=== PATIENT | female | born 1960 | race Caucasian/White ===

== ENCOUNTER 2017-02-15 15:45 | Emergency (ER) | payer MEDICARE ==
[~2017-02-15] VITALS: Ht 165.1 cm; Wt 58.5 kg
[~2017-02-15 15:45] MED LIST: ACET500 PO; ALBU.083IS IH; CITA20; CITA20 PO; CLON.5; CLON.5 PO; Cipro500 MG PO; Cleocin HCl300 MG PO; DARIFENACIN ER15 MG PO; DESV50 PO; DIVA125EC; DIVA125EC PO; DULO30 PO; ELET40TA; ELET40TA PO; ENABLEX; HYDCHL25; IBUP400 PO; IBUP800; IBUP800 PO; INTE30I; INTE30I SC; INTE30I SUBQ; MECL25 PO; METPRE4 PO; METPRE4DP PO; MONT10T PO; NUVIGIL; Naprosyn500 MG PO; OXYACE5T PO; PREG75 PO; PROM25 PO; TIZA4; VIIBRYD10 MG PO
[2017-02-15 16:51] LABS: BASOPHILS ABSOLUTE AUTO 0.06 K/mm3 (0.00-0.23); BASOPHILS PERCENT AUTO 1 % (0-2); EOSINOPHILS ABSOLUTE AUTO 0.11 K/mm3 (0.00-0.68); EOSINOPHILS PERCENT AUTO 2 % (0-6); Hematocrit 41.2 % (33.0-51.0); Hemoglobin 13.7 g/dL (11.5-16.0); IMMATURE GRAN ABSOLUTE AUTO 0.01 K/mm3 (0.00-0.10); IMMATURE GRAN PERCENT AUTO 0 % (0-1); LYMPHOCYTES ABSOLUTE AUTO 2.34 K/mm3 (0.84-5.20); LYMPHOCYTES PERCENT AUTO 39 % (21-46); MONOCYTES ABSOLUTE AUTO 0.41 K/mm3 (0.16-1.47); MONOCYTES PERCENT AUTO 7 % (4-13); Mean Corpuscular HGB 31.7 pg (26.0-34.0); Mean Corpuscular HGB Conc 33.3 g/dL (31.5-36.5); Mean Corpuscular Volume 95 fL (80-100); Mean Platelet Volume 10.5 fL (9.1-12.4); NEUTROPHILS ABSOLUTE AUTO 3.11 K/mm3 (1.96-9.15); NEUTROPHILS PERCENT AUTO 52 % (41-73); Platelet Count 234 K/mm3 (150-400); RDW Coefficient Variation 13.5 % (11.7-14.2); RDW Standard Deviation 46.8 fL (35.1-46.3); Red Blood Cell Count 4.32 M/mm3 (3.80-5.20); White Blood Cell Count 6.04 K/mm3 (4.00-11.30)
[2017-02-15 17:07] LABS: Alanine Aminotransfer (ALT/SGP 26 U/L (12-78); Albumin, Blood 4.2 g/dL (3.4-5.0); Albumin/Globulin Ratio 1.2 (0.8-1.8); Alk Phos 97 U/L (50-136); Anion Gap 4 mmol/L (6-16); Aspartate Aminotrans (AST/SGOT 21 U/L (12-37); Bilirubin, Total 0.3 mg/dL (0.1-1.0); Blood Urea Nitrogen 25 mg/dL (8-24); Bun/Creatinine Ratio 30.1 (12.0-20.0); CO2, Blood 30 mmol/L (21-32); Calcium, Blood 9.4 mg/dL (8.5-10.1); Chloride, Blood 108 mmol/L (98-108); Creatinine, Blood 0.83 mg/dL (0.40-1.00); Globulin, Blood 3.5 g/dL (2.2-4.0); Glomerular Filtration Rate >60 (60-); Glucose, Blood 100 mg/dL (70-99); Potassium, Blood 4.2 mmol/L (3.5-5.5); Sodium, Blood 142 mmol/L (136-145); Total Protein, Blood 7.7 g/dL (6.4-8.2)
[2017-02-15] MEDS ORDERED: Enablex15 MG PO (19:56)
[2017-02-15] MEDS ORDERED: TECFIDERA1 EACH PO (19:56)
[2017-02-15] MEDS ORDERED: Atrovent Inha12.9 GM INH (19:56)
[2017-02-15] MEDS ORDERED: Prilosec Otc20 MG (19:57)
[2017-02-15] MEDS ORDERED: DESV50 PO (19:57)
[2017-02-15] MEDS ORDERED: ZOMIG (19:57)
[2017-02-15] MEDS ORDERED: Estrace Vagin42.5 GM PV (19:58)
[2017-02-15] MEDS ORDERED: Prednisone20 MG PO (20:49)
== END 2017-02-15 20:56 | disposition home or self-care (01) ==
LOC: ER 15:45
PROVIDERS: Emergency Medicine
DX: R20.2 Paresthesia of skin (principal); Z88.0 Allergy status to penicillin; Z88.2 Allergy status to sulfonamides; Z88.8 Allergy status to other drugs, medicaments and biological substances; Z79.899 Other long term (current) drug therapy; Z79.52 Long term (current) use of systemic steroids; F17.200 Nicotine dependence, unspecified, uncomplicated
CPT/HCPCS: 36415; 80053; 85025; 99283

== ENCOUNTER 2017-10-27 11:52 | Emergency (ER) | payer MEDICARE ==
[~2017-10-27] VITALS: Ht 152.4 cm; Wt 57.1 kg
[~2017-10-27 11:52] MED LIST changes: +Atrovent Inha12.9 GM INH; +Enablex15 MG PO; +Estrace Vagin42.5 GM PV; +Prednisone20 MG PO; +Prilosec Otc20 MG; +TECFIDERA1 EACH PO; +ZOMIG
[2017-10-27] MEDS ORDERED: QUET25 PO (12:14)
[2017-10-27] MEDS ORDERED: SOLI5 (12:14)
== END 2017-10-27 13:03 | disposition home or self-care (01) ==
LOC: ER 11:52
DX: S61.211A Laceration without foreign body of left index finger without damage to nail, initial encounter (principal); W26.0XXA Contact with knife, initial encounter; Z88.0 Allergy status to penicillin; Z88.2 Allergy status to sulfonamides; Z88.1 Allergy status to other antibiotic agents; Z79.899 Other long term (current) drug therapy; Z79.52 Long term (current) use of systemic steroids; F17.200 Nicotine dependence, unspecified, uncomplicated
CPT/HCPCS: 12001; 99282

== ENCOUNTER 2019-10-13 17:50 | Emergency (ER) | payer MEDICARE ==
[~2019-10-13] VITALS: Ht 152.4 cm; Wt 53.5 kg
[~2019-10-13 17:50] MED LIST changes: +ANORO ELLIPTA1 EACH INH; +BUPR150ER PO; +PROAIR DIGIHAL90 MCG IH; +QUET25 PO; +SOLI5
== END 2019-10-13 21:55 | disposition home or self-care (01) ==
LOC: ER 17:50
DX: G35 Multiple sclerosis (principal); F17.210 Nicotine dependence, cigarettes, uncomplicated; Z88.0 Allergy status to penicillin; Z88.2 Allergy status to sulfonamides; Z88.1 Allergy status to other antibiotic agents; Z79.899 Other long term (current) drug therapy
CPT/HCPCS: 96365; 99283-25; J2930

== ENCOUNTER 2019-10-15 13:19 | Day surgery (SDC) | payer MEDICARE | END 2019-10-15 15:09 | disposition home or self-care (01) | LOC: ATC 13:19 | DX: G35 Multiple sclerosis (principal) | CPT/HCPCS: 96365; J2930 ==

== ENCOUNTER 2019-10-16 08:55 | Day surgery (SDC) | payer MEDICARE | END 2019-10-16 11:09 | disposition home or self-care (01) | LOC: ATC 08:55 | DX: G35 Multiple sclerosis (principal); F17.210 Nicotine dependence, cigarettes, uncomplicated; J44.9 Chronic obstructive pulmonary disease, unspecified; Z88.2 Allergy status to sulfonamides; Z88.0 Allergy status to penicillin; Z88.1 Allergy status to other antibiotic agents; F32.9 Major depressive disorder, single episode, unspecified | CPT/HCPCS: 96365; J2930 ==

== ENCOUNTER 2019-10-17 10:12 | Day surgery (SDC) | payer MEDICARE | END 2019-10-17 11:16 | disposition home or self-care (01) | LOC: ATC 10:12 | DX: G35 Multiple sclerosis (principal); G40.909 Epilepsy, unspecified, not intractable, without status epilepticus; F17.210 Nicotine dependence, cigarettes, uncomplicated; Z88.0 Allergy status to penicillin; Z88.2 Allergy status to sulfonamides; Z88.1 Allergy status to other antibiotic agents; Z79.899 Other long term (current) drug therapy; J44.9 Chronic obstructive pulmonary disease, unspecified | CPT/HCPCS: 96365; J2930 ==

== ENCOUNTER 2020-06-17 12:57 | Emergency (ER) | payer MEDICARE, OTHER ==
[~2020-06-17] VITALS: Ht 152.4 cm; Wt 53.5 kg
[~2020-06-17 12:57] MED LIST changes: -SOLI5; +SOLI5 PO
== END 2020-06-17 14:19 ==
LOC: ER 12:57
DX: G35 Multiple sclerosis (principal); F17.210 Nicotine dependence, cigarettes, uncomplicated; Z79.899 Other long term (current) drug therapy; Z88.0 Allergy status to penicillin; Z88.2 Allergy status to sulfonamides; Z88.1 Allergy status to other antibiotic agents
CPT/HCPCS: 96365; 99283-25; J2930

== ENCOUNTER 2020-06-20 00:18 | Day surgery (SDC) | payer MEDICARE, OTHER ==
[2020-06-20] MEDS ORDERED: PREG150 PO (17:17)
[2020-06-20] MEDS ORDERED: Flonase 0.05% N16 GM (17:20)
[2020-06-20] MEDS ORDERED: FLUTICASONE PRO16 GM (17:24)
[2020-06-20] MEDS ORDERED: ATROVENT HFA12.9 GM INH (17:25)
[2020-06-20] MEDS ORDERED: ZOLM5 PO (17:27)
[2020-06-20] MEDS ORDERED: ABAT250V (17:27)
[2020-06-20] MEDS ORDERED: ATOR10 PO (17:29)
== END 2020-06-20 16:45 | disposition home or self-care (01) ==
LOC: ATC 00:18
DX: G35 Multiple sclerosis (principal); J44.9 Chronic obstructive pulmonary disease, unspecified; M79.7 Fibromyalgia; F17.210 Nicotine dependence, cigarettes, uncomplicated; Z88.2 Allergy status to sulfonamides; Z88.8 Allergy status to other drugs, medicaments and biological substances; Z88.0 Allergy status to penicillin
CPT/HCPCS: 96365; J2930

== ENCOUNTER 2020-06-21 02:44 | Day surgery (SDC) | payer MEDICARE, OTHER ==
[~2020-06-21 02:44] MED LIST changes: +ABAT250V; +ATOR10 PO; +ATROVENT HFA12.9 GM INH; +FLUTICASONE PRO16 GM; +Flonase 0.05% N16 GM; +PREG150 PO; +ZOLM5 PO
== END 2020-06-21 14:15 | disposition home or self-care (01) ==
LOC: ATC 02:44
DX: G35 Multiple sclerosis (principal); J44.9 Chronic obstructive pulmonary disease, unspecified; F17.210 Nicotine dependence, cigarettes, uncomplicated; Z88.0 Allergy status to penicillin; Z88.1 Allergy status to other antibiotic agents; Z88.2 Allergy status to sulfonamides; Z88.8 Allergy status to other drugs, medicaments and biological substances; Z79.899 Other long term (current) drug therapy
CPT/HCPCS: 96365; J2930

== ENCOUNTER 2020-08-19 12:19 | Emergency (ER) | payer MEDICARE, OTHER ==
[~2020-08-19] VITALS: Ht 152.4 cm; Wt 54.0 kg
[2020-08-19 12:42] LABS: BASOPHILS ABSOLUTE AUTO 0.09 K/mm3 (0.00-0.23); BASOPHILS PERCENT AUTO 1 % (0-2); EOSINOPHILS ABSOLUTE AUTO 0.12 K/mm3 (0.00-0.68); EOSINOPHILS PERCENT AUTO 2 % (0-6); Hematocrit 40.4 % (33.0-51.0); IMMATURE GRAN ABSOLUTE AUTO 0.02 K/mm3 (0.00-0.10); IMMATURE GRAN PERCENT AUTO 0 % (0-1); LYMPHOCYTES ABSOLUTE AUTO 1.78 K/mm3 (0.84-5.20); LYMPHOCYTES PERCENT AUTO 22 % (21-46); MONOCYTES ABSOLUTE AUTO 0.57 K/mm3 (0.16-1.47); MONOCYTES PERCENT AUTO 7 % (4-13); Mean Corpuscular HGB 31.3 pg (26.0-34.0); Mean Corpuscular HGB Conc 32.2 g/dL (31.5-36.5); Mean Corpuscular Volume 97 fL (80-100); Mean Platelet Volume 10.4 fL (9.1-12.4); NEUTROPHILS ABSOLUTE AUTO 5.49 K/mm3 (1.96-9.15); NEUTROPHILS PERCENT AUTO 68 % (41-73); Platelet Count 216 K/mm3 (150-400); RDW Coefficient Variation 13.3 % (11.7-14.2); RDW Standard Deviation 48.4 fL (35.1-46.3); Red Blood Cell Count 4.16 M/mm3 (3.80-5.20); White Blood Cell Count 8.07 K/mm3 (4.00-11.30)
[2020-08-19 13:01] LABS: Alanine Aminotransfer (ALT/SGP 24 U/L (12-78); Albumin/Globulin Ratio 1.4 (0.8-1.8); Alk Phos 84 U/L (50-136); Anion Gap 3 mmol/L (6-16); Aspartate Aminotrans (AST/SGOT 18 U/L (12-37); Bilirubin, Total 0.2 mg/dL (0.1-1.0); Blood Urea Nitrogen 18 mg/dL (8-24); Bun/Creatinine Ratio 20.5 (12.0-20.0); CO2, Blood 30 mmol/L (21-32); Calcium, Blood 8.8 mg/dL (8.5-10.1); Chloride, Blood 106 mmol/L (98-108); Creatinine, Blood 0.88 mg/dL (0.40-1.00); Globulin, Blood 2.8 g/dL (2.2-4.0); Glomerular Filtration Rate >60 (60-); Glucose, Blood 100 mg/dL (70-99); Potassium, Blood 4.6 mmol/L (3.5-5.5); Sodium, Blood 139 mmol/L (136-145); Total Protein, Blood 6.8 g/dL (6.4-8.2)
== END 2020-08-19 14:52 | disposition left against medical advice (07) ==
LOC: ER 12:19
PROVIDERS: Emergency Medicine
DX: R20.0 Anesthesia of skin (principal); Z53.21 Procedure and treatment not carried out due to patient leaving prior to being seen by health care provider
CPT/HCPCS: 36415; 80053; 85025

== ENCOUNTER 2020-08-24 00:51 | Day surgery (SDC) | payer MEDICARE, OTHER ==
--- NOTE | 2020-08-24 09:17 | NUR ---
IV WRAPPED WITH COBAN AND BANDNET, PT TO RETURN TOMORROW FOR SOLUMEDROL
== END 2020-08-24 08:51 | disposition home or self-care (01) ==
LOC: ATC 00:51
DX: G35 Multiple sclerosis (principal); J44.9 Chronic obstructive pulmonary disease, unspecified; F17.210 Nicotine dependence, cigarettes, uncomplicated; Z88.1 Allergy status to other antibiotic agents; Z88.8 Allergy status to other drugs, medicaments and biological substances
CPT/HCPCS: J2930

== ENCOUNTER 2020-08-25 04:19 | Day surgery (SDC) | payer MEDICARE, OTHER | END 2020-08-25 14:23 | disposition home or self-care (01) | LOC: ATC 04:19 | DX: G35 Multiple sclerosis (principal); J44.9 Chronic obstructive pulmonary disease, unspecified; F17.210 Nicotine dependence, cigarettes, uncomplicated; Z88.1 Allergy status to other antibiotic agents; Z88.8 Allergy status to other drugs, medicaments and biological substances | CPT/HCPCS: J2930 ==

== ENCOUNTER 2020-08-26 02:20 | Day surgery (SDC) | payer MEDICARE, OTHER | END 2020-08-26 14:30 | disposition home or self-care (01) | LOC: ATC 02:20 | DX: G35 Multiple sclerosis (principal); J44.9 Chronic obstructive pulmonary disease, unspecified; Z79.899 Other long term (current) drug therapy; Z88.0 Allergy status to penicillin; Z88.2 Allergy status to sulfonamides; Z88.1 Allergy status to other antibiotic agents; Z88.8 Allergy status to other drugs, medicaments and biological substances | CPT/HCPCS: 96365; J2930 ==

== ENCOUNTER 2021-07-21 18:18 | Emergency (ER) | payer MEDICARE, OTHER ==
[~2021-07-21] VITALS: Ht 152.4 cm; Wt 59.4 kg
== END 2021-07-21 20:30 | disposition left against medical advice (07) ==
LOC: ER 18:18
DX: G35 Multiple sclerosis (principal); Z79.899 Other long term (current) drug therapy; Z53.21 Procedure and treatment not carried out due to patient leaving prior to being seen by health care provider
CPT/HCPCS: 36415; J2930

== ENCOUNTER 2021-07-27 15:25 | Day surgery (SDC) | payer MEDICARE, OTHER | END 2021-07-27 16:30 | disposition home or self-care (01) | LOC: ATC 15:25 | DX: G35 Multiple sclerosis (principal); J44.9 Chronic obstructive pulmonary disease, unspecified; M79.7 Fibromyalgia; Z88.2 Allergy status to sulfonamides; Z88.1 Allergy status to other antibiotic agents; Z88.8 Allergy status to other drugs, medicaments and biological substances; F17.210 Nicotine dependence, cigarettes, uncomplicated | CPT/HCPCS: 96365; J2930 ==

== ENCOUNTER 2021-07-30 00:29 | Day surgery (SDC) | payer MEDICARE, OTHER | END 2021-07-30 10:53 | disposition home or self-care (01) | LOC: ATC 00:29 | DX: G35 Multiple sclerosis (principal); J44.9 Chronic obstructive pulmonary disease, unspecified; F17.210 Nicotine dependence, cigarettes, uncomplicated; Z88.1 Allergy status to other antibiotic agents; Z88.2 Allergy status to sulfonamides; Z88.8 Allergy status to other drugs, medicaments and biological substances | CPT/HCPCS: 96365; J2930 ==

== ENCOUNTER 2021-08-02 02:14 | Day surgery (SDC) | payer MEDICARE, OTHER | END 2021-08-02 10:27 | disposition home or self-care (01) | LOC: ATC 02:14 | DX: G35 Multiple sclerosis (principal) | CPT/HCPCS: J2930 ==

== ENCOUNTER 2022-05-31 12:17 | Emergency (ER) | payer MEDICARE, OTHER ==
[~2022-05-31] VITALS: Ht 152.4 cm; Wt 54.9 kg
[2022-05-31 14:01] VITALS: BP 146/81
== END 2022-05-31 14:01 | disposition home or self-care (01) ==
LOC: ER 12:17
DX: G35 Multiple sclerosis (principal); M79.7 Fibromyalgia; F17.210 Nicotine dependence, cigarettes, uncomplicated; Z88.0 Allergy status to penicillin; Z88.2 Allergy status to sulfonamides; Z88.8 Allergy status to other drugs, medicaments and biological substances; Z79.899 Other long term (current) drug therapy
CPT/HCPCS: J2930

== ENCOUNTER 2023-08-15 09:24 | Day surgery (SDC) | payer MEDICARE, OTHER ==
[~2023-08-15 09:24] MED LIST changes: +OMEP20ER PO; +ZOLM5; -ZOLM5 PO
[2023-08-15] MEDS ORDERED: MethylPREDNISolone Sod Succ 1,000 MG in Dextrose 5% 50 ML IV SCH (10:05)
[2023-08-15 14:00] VITALS: BP 137/81
[2023-08-15] MEDS ORDERED: BUPROPION XL150 M1 PO (14:16)
== END 2023-08-15 14:30 | disposition home or self-care (01) ==
LOC: ATC 09:24
DX: G35 Multiple sclerosis (principal); J44.9 Chronic obstructive pulmonary disease, unspecified; Z88.0 Allergy status to penicillin; Z88.2 Allergy status to sulfonamides
CPT/HCPCS: 96365; J2919

== ENCOUNTER 2023-08-16 01:55 | Day surgery (SDC) | payer MEDICARE, OTHER ==
[~2023-08-16 01:55] MED LIST changes: +BUPROPION XL150 M1 PO
[2023-08-16] MEDS ORDERED: MethylPREDNISolone Sod Succ 1,000 MG in Dextrose 5% 50 ML IV SCH (07:00)
[2023-08-16 14:03] VITALS: BP 113/80
== END 2023-08-16 14:31 | disposition home or self-care (01) ==
LOC: ATC 01:55
DX: G35 Multiple sclerosis (principal); J44.9 Chronic obstructive pulmonary disease, unspecified; R20.2 Paresthesia of skin; Z88.0 Allergy status to penicillin; Z88.2 Allergy status to sulfonamides; Z88.8 Allergy status to other drugs, medicaments and biological substances
CPT/HCPCS: 96365; J2919

== ENCOUNTER 2023-08-17 02:48 | Day surgery (SDC) | payer MEDICARE, OTHER ==
[2023-08-17] MEDS ORDERED: MethylPREDNISolone Sod Succ 1,000 MG in Dextrose 5% 50 ML IV SCH (06:00)
[2023-08-17 13:53] VITALS: BP 124/73
== END 2023-08-17 14:30 | disposition home or self-care (01) ==
LOC: ATC 02:48
DX: G35 Multiple sclerosis (principal); J44.9 Chronic obstructive pulmonary disease, unspecified; Z88.2 Allergy status to sulfonamides; Z88.1 Allergy status to other antibiotic agents; Z88.0 Allergy status to penicillin; Z88.8 Allergy status to other drugs, medicaments and biological substances; Z79.899 Other long term (current) drug therapy
CPT/HCPCS: 96365; J2919

== ENCOUNTER 2023-11-13 01:25 | Day surgery (SDC) | payer MEDICARE, OTHER ==
[2023-11-13] MEDS ORDERED: UBLITUXIMAB XIIY IV SCH (06:00)
[2023-11-13] MEDS ORDERED: NS IV SCH (06:00)
[2023-11-13] MEDS ORDERED: MethylPREDNISolone Sod Succ 125 MG Vial IV SCH ×2 (07:40→07:55)
[2023-11-13] MEDS ORDERED: Acetaminophen 325 MG TABLET PO SCH (07:40)
[2023-11-13] MEDS ORDERED: DiphenhydrAMINE HCl 50 MG/ML 1ML Vial IV SCH ×2 (07:40→07:55)
[2023-11-13] MEDS ORDERED: Acetaminophen 325 MG TABLET PO PRN (07:55)
[2023-11-13 13:46] VITALS: BP 136/72
--- NOTE | 2023-11-13 14:29 | NUR ---
STICKER ON DOCUMENTATION This nursing scheduler obtained verbal consent to participate with care on 11/13/2023 at 1346.
[2023-11-13 16:13] VITALS: BP 141/79
[2023-11-13 18:17] VITALS: BP 144/75
== END 2023-11-13 18:19 | disposition home or self-care (01) ==
LOC: ATC 01:25
DX: G35 Multiple sclerosis (principal); J44.9 Chronic obstructive pulmonary disease, unspecified; Z88.1 Allergy status to other antibiotic agents; Z88.0 Allergy status to penicillin; Z88.2 Allergy status to sulfonamides; Z79.899 Other long term (current) drug therapy
CPT/HCPCS: 96365; 96366; 96375; A9270; J1200; J2329; J2919; J7050

== ENCOUNTER 2024-01-10 04:09 | Day surgery (SDC) | payer MEDICARE, OTHER ==
[~2024-01-10 04:09] MED LIST changes: +Acetaminophen 325 MG TABLET PO SCH; +DiphenhydrAMINE HCl 50 MG/ML 1ML Vial IV SCH; +Hydrocortisone Sod Succinate 100 MG Vial IV SCH; +UBLITUXIMAB-XIIY 450 MG in NS 232 ML IV SCH
[2024-01-10] MEDS ORDERED: UBLITUXIMAB-XIIY 450 MG in NS 232 ML IV SCH (06:00)
[2024-01-10 08:05] VITALS: BP 146/99
== END 2024-01-10 10:02 | disposition home or self-care (01) ==
LOC: ATC 04:09
DX: G35 Multiple sclerosis (principal); J44.9 Chronic obstructive pulmonary disease, unspecified; M79.7 Fibromyalgia; F17.210 Nicotine dependence, cigarettes, uncomplicated; Z79.899 Other long term (current) drug therapy; Z88.0 Allergy status to penicillin; Z88.2 Allergy status to sulfonamides; Z88.8 Allergy status to other drugs, medicaments and biological substances; Z90.49 Acquired absence of other specified parts of digestive tract; Z90.710 Acquired absence of both cervix and uterus
CPT/HCPCS: 96365; 96375; A9270; J1200; J1720; J2329; J7050

== ENCOUNTER 2024-06-26 06:56 | Day surgery (SDC) | payer MEDICARE, OTHER ==
[~2024-06-26 06:56] MED LIST changes: -Acetaminophen 325 MG TABLET PO SCH; -DiphenhydrAMINE HCl 50 MG/ML 1ML Vial IV SCH; -Hydrocortisone Sod Succinate 100 MG Vial IV SCH
[2024-06-26] MEDS ORDERED: MethylPREDNISolone Sod Succ 125 MG Vial IV SCH (07:10)
[2024-06-26] MEDS ORDERED: Acetaminophen 325 MG TABLET PO SCH (07:10)
[2024-06-26] MEDS ORDERED: DiphenhydrAMINE HCl 50 MG/ML 1ML Vial IV SCH (07:10)
[2024-06-26 08:00] VITALS: BP 106/71
[2024-06-26 09:05] VITALS: BP 115/71
== END 2024-06-26 09:40 | disposition home or self-care (01) ==
LOC: ATC 06:56
DX: G35 Multiple sclerosis (principal); Z79.899 Other long term (current) drug therapy; Z88.2 Allergy status to sulfonamides; Z88.1 Allergy status to other antibiotic agents; Z88.8 Allergy status to other drugs, medicaments and biological substances
CPT/HCPCS: 96365; 96375; A9270; J1200; J2329; J2919; J7050

== ENCOUNTER → 2024-11-28 | Outpatient (CLI) | payer MEDICARE, OTHER ==
[~2024-11-28] MED LIST changes: -TECFIDERA1 EACH PO; +TECFIDERA240 MG PO; -UBLITUXIMAB-XIIY 450 MG in NS 232 ML IV SCH
[2024-11-28 11:13] LABS: BASOPHILS ABSOLUTE AUTO 0.06 K/mm3 (0.00-0.23); BASOPHILS PERCENT AUTO 1 % (0-2); EOSINOPHILS ABSOLUTE AUTO 0.11 K/mm3 (0.00-0.68); EOSINOPHILS PERCENT AUTO 1 % (0-6); Hematocrit 38.4 % (33.0-51.0); Hemoglobin 12.7 g/dL (11.5-16.0); IMMATURE GRAN ABSOLUTE AUTO 0.02 K/mm3 (0.00-0.10); IMMATURE GRAN PERCENT AUTO 0 % (0-1); LYMPHOCYTES ABSOLUTE AUTO 0.97 K/mm3 (0.84-5.20); LYMPHOCYTES PERCENT AUTO 13 % (21-46); MONOCYTES ABSOLUTE AUTO 0.72 K/mm3 (0.16-1.47); MONOCYTES PERCENT AUTO 10 % (4-13); Mean Corpuscular HGB Conc 33.1 g/dL (31.5-36.5); Mean Corpuscular Volume 92 fL (80-100); NEUTROPHILS ABSOLUTE AUTO 5.73 K/mm3 (1.96-9.15); NEUTROPHILS PERCENT AUTO 75 % (41-73); NRBC ABSOLUTE 0.00 K/mm3 (0.00-0.02); NRBC Auto 0.0 /100 WBC (0.0-0.2); Platelet Count 285 K/mm3 (150-400); RDW Coefficient Variation 13.4 % (11.7-14.2); RDW Standard Deviation 45.5 fL (35.1-46.3)
[2024-11-28 11:49] LABS: Alanine Aminotransfer (ALT/SGP 33 U/L (12-78); Albumin, Blood 3.9 g/dL (3.4-5.0); Albumin/Globulin Ratio 1.4 (0.8-1.8); Anion Gap 7 mmol/L (3-11); Aspartate Aminotrans (AST/SGOT 14 U/L (12-37); Bilirubin, Total 0.3 mg/dL (0.1-1.0); Blood Urea Nitrogen 10 mg/dL (8-24); CHOL/HDL RATIO 3.0; CO2, Blood 28 mmol/L (21-32); Calcium, Blood 9.1 mg/dL (8.5-10.1); Chloride, Blood 104 mmol/L (98-108); Cholesterol 137 mg/dL (50-200); Creatinine, Blood 0.64 mg/dL (0.40-1.00); Globulin, Blood 2.7 g/dL (2.2-4.0); Glucose, Blood 94 mg/dL (70-99); HDL Cholesterol 46 mg/dL (>39); LDL/HDL RATIO 1.6; Low Density Lipoprotein Chol 73 mg/dL (0-110); Potassium, Blood 4.2 mmol/L (3.5-5.5); Sodium, Blood 135 mmol/L (136-145); Total Protein, Blood 6.6 g/dL (6.4-8.2); Triglycerides 91 mg/dL (30-160); Very Low Density Lipoprot Chol 18 mg/dL (6-32)
== END ==
LOC: LAB SHORT 10:05 → LAB 10:05
PROVIDERS: Student in an Organized Health Care Education/Training Program
DX: Z13.6 Encounter for screening for cardiovascular disorders (principal); J44.9 Chronic obstructive pulmonary disease, unspecified; F33.1 Major depressive disorder, recurrent, moderate
CPT/HCPCS: 80053; 80061; 85025

== ENCOUNTER 2025-02-05 11:51 | Emergency (ER) | payer MEDICARE, OTHER ==
[~2025-02-05] VITALS: Ht 152.4 cm; Wt 49.4 kg
[2025-02-05] MEDS ORDERED: Ketorolac Tromethamine 30mg Vial IV ONE (12:10)
[2025-02-05 12:24] LABS: BASOPHILS ABSOLUTE AUTO 0.07 K/mm3 (0.00-0.23); BASOPHILS PERCENT AUTO 1 % (0-2); EOSINOPHILS ABSOLUTE AUTO 0.09 K/mm3 (0.00-0.68); EOSINOPHILS PERCENT AUTO 1 % (0-6); Hematocrit 38.3 % (33.0-51.0); Hemoglobin 12.6 g/dL (11.5-16.0); IMMATURE GRAN ABSOLUTE AUTO 0.02 K/mm3 (0.00-0.10); IMMATURE GRAN PERCENT AUTO 0 % (0-1); LYMPHOCYTES ABSOLUTE AUTO 1.28 K/mm3 (0.84-5.20); LYMPHOCYTES PERCENT AUTO 14 % (21-46); MONOCYTES ABSOLUTE AUTO 0.79 K/mm3 (0.16-1.47); MONOCYTES PERCENT AUTO 8 % (4-13); Mean Corpuscular HGB Conc 32.9 g/dL (31.5-36.5); Mean Corpuscular Volume 94 fL (80-100); NEUTROPHILS ABSOLUTE AUTO 7.10 K/mm3 (1.96-9.15); NEUTROPHILS PERCENT AUTO 76 % (41-73); NRBC ABSOLUTE 0.00 K/mm3 (0.00-0.02); NRBC Auto 0.0 /100 WBC (0.0-0.2); Platelet Count 263 K/mm3 (150-400); RDW Coefficient Variation 13.8 % (11.7-14.2); RDW Standard Deviation 47.3 fL (35.1-46.3)
[2025-02-05 12:40] LABS: C-REACTIVE PROTEIN, EXT RANGE <0.290 mg/dL (0.000-0.300); Magnesium, Blood 2.0 mg/dL (1.6-2.4)
[2025-02-05 12:41] LABS: Alanine Aminotransfer (ALT/SGP 27 U/L (12-78); Albumin, Blood 3.6 g/dL (3.4-5.0); Albumin/Globulin Ratio 1.1 (0.8-1.8); Anion Gap 6 mmol/L (3-11); Aspartate Aminotrans (AST/SGOT 12 U/L (12-37); Bilirubin, Total 0.3 mg/dL (0.1-1.0); Blood Urea Nitrogen 29 mg/dL (8-24); CO2, Blood 27 mmol/L (21-32); Calcium, Blood 8.9 mg/dL (8.5-10.1); Chloride, Blood 108 mmol/L (98-108); Creatinine, Blood 0.73 mg/dL (0.40-1.00); Globulin, Blood 3.2 g/dL (2.2-4.0); Glucose, Blood 103 mg/dL (70-99); Potassium, Blood 4.0 mmol/L (3.5-5.5); Sodium, Blood 137 mmol/L (136-145); Total Protein, Blood 6.8 g/dL (6.4-8.2)
[2025-02-05 13:34] VITALS: BP 133/65
== END 2025-02-05 13:43 | disposition home or self-care (01) ==
LOC: ER 11:51
PROVIDERS: Student in an Organized Health Care Education/Training Program
DX: R07.81 Pleurodynia (principal); Z88.0 Allergy status to penicillin; Z88.2 Allergy status to sulfonamides; Z79.899 Other long term (current) drug therapy; J44.9 Chronic obstructive pulmonary disease, unspecified; F17.210 Nicotine dependence, cigarettes, uncomplicated
CPT/HCPCS: 71260; 80053; 83735; 83880; 84484; 85025; 86140; 93005; 93010; 96374; 99285-25; J1885; Q9967